=== PATIENT | female | born 1960 | race Two or more races ===

== ENCOUNTER 2018-12-01 11:19 | Emergency (ER) | payer OTHER ==
[~2018-12-01] VITALS: Ht 165.1 cm; Wt 95.2 kg
== END 2018-12-01 12:54 | disposition home or self-care (01) ==
LOC: ER 11:19
DX: S61.412A Laceration without foreign body of left hand, initial encounter (principal); W26.8XXA Contact with other sharp object(s), not elsewhere classified, initial encounter
CPT/HCPCS: 12002; 99282-25